=== PATIENT | female | born 2000 | race Two or more races ===

== ENCOUNTER 2021-01-08 21:44 | Emergency (ER) | payer OTHER ==
[~2021-01-08] VITALS: Ht 157.5 cm; Wt 71.7 kg
[2021-01-08 22:09] VITALS: BP 116/64
--- NOTE | 2021-01-08 22:11 | NUR ---
BIB SELF C/O R UPPER THIGH DOG BITE DENIES PAIN. UPON ASSESSMENT SUPERFICIAL, LACERATION NOTED WITH DISCOLORATION SURROUNDING. DENIES PAIN AND NO UP TO DATE TETANUS VACCINE. VSS STABLE EMT AT BEDSIDE FOR WOUND CARE AWAITING MD EVAL AND ORDERS.
[2021-01-08] MEDS ORDERED: AMOX/CLAVULANATE 875 MG TABLET PO ONE (22:30)
[2021-01-08] MEDS ORDERED: TDAP [DIPH/PERTUSSIS/TET] 0.5 ML VIAL IM ONE ×2 (22:30)
[2021-01-08] MEDS ORDERED: AMOX/CLAVULANATE 875 MG TABLET ONE (22:30)
[2021-01-08] MEDS ORDERED: AMOX-430 PO (22:44)
--- NOTE | 2021-01-08 23:29 | NUR ---
Patient discharged to home in stable condition. Written and verbal after care instructions given. Patient verbalizes understanding of instruction.
== END 2021-01-08 23:31 | disposition home or self-care (01) ==
LOC: ER 21:51
DX: S71.111A Laceration without foreign body, right thigh, initial encounter (principal); W54.0XXA Bitten by dog, initial encounter; Y93.01 Activity, walking, marching and hiking; Y92.89 Other specified places as the place of occurrence of the external cause; Y99.8 Other external cause status
CPT/HCPCS: 90715